=== PATIENT | female | born 1980 | race Hispanic/Latino ===

== ENCOUNTER 2018-09-17 08:03 | Emergency (ER) | payer BC, SELFPAY ==
--- OUTSIDE RECORDS SUMMARY | 2018-09-17 08:05 | XMS REPORT | Clinical Summary ---
:1980 Author Organization [facility] Address [address] [place] [id number] Care Team Providers Name Role Phone Eliza Domingo MD Primary Care Provider Allergies Not on File Current Medications Not on file Active Problems Not on file Social History Tobacco Use Types Packs/Day Years Used Date Never Assessed Sex Assigned at Date Recorded Not on file Last Filed Vital Signs Not on file Plan of Treatment Health Maintenance Due Date Last Done Comments CERVICAL CANCER SCREENING 2001 INFLUENZA VACCINE 06/25/2018 Results Not on fileafter 09/16/2017 Insurance Payer Benefit Plan / Group Subscriber ID Type Phone Address BCBS BCBS CHOICE PPO/FEDERAL EMPL PPO xxxxxxxxxxxx PPO Home: [id number] [phone] [place], [place] [phone]
[2018-09-17 08:38] LABS: Urine Blood 3+ (NEG); Urine Glucose NEGATIVE (NEG); Urine Protein 1+ (NEG); Urine Specific Gravity 1.015 (1.005-1.030); Urine pH 6.5 (5.0-7.0)
[2018-09-17 08:52] LABS: Absolute Monocytes 0.7 K/uL (0.1-1.3); Absolute Neutrophil 5.2 K/uL (1.8-8.0); Basophils % 0.3 % (0-1.3); Eosinophils % 3.1 % (0-4.4); Hematocrit 33.2 % (36.0-45.0); Lymphocytes % 24.3 % (15.3-44.8); MCH 30.2 pg (27.0-35.0); MCV 89.3 fL (80-100); Monocytes % 8.4 % (3.3-12.3); RBC Red Blood Cell Count 3.72 M/uL (3.86-4.86)
[2018-09-17 08:54] LABS: Urine RBC LOADED /HPF (NONE SEEN)
[2018-09-17 08:55] LABS: Urine Bacteria <20 /HPF (<20)
[2018-09-17 08:57] LABS: Urine Culture Reflex Order REFLEXED
--- NOTE | 2018-09-17 09:34 | RAD REPORT ---
EXAM DESCRIPTION: US - Transvaginal Study Probe - 09/17/2018 9:08 am CLINICAL HISTORY: Excessive vaginal bleeding COMPARISON: none FINDINGS: The uterus measures 12 x 7 x 6cm. A fibroid is not seen. Endometrial stripe measures 22 mi llimeters. Nabothian cysts are present within the cervix or A 4 centimeter right ovarian cyst is present. Blood flow within the right ovary is seen. Left ovary i s not well visualized but appears grossly normal. No significant free fluid is seen. IMPRESSION: Thickened endometrial stripe. Follow-up ultrasound in 6 weeks would be helpful to assess stability/resolution 4 centimeter right ovarian cyst. This also can be evaluated on subsequent ultrasound
[2018-09-17] MEDS ORDERED: NA CHLORIDE 0.9% 1,000 ML ONE (09:40)
--- NOTE | 2018-09-17 10:21 | ER ---
Nurse's Notes [facility] Name: Morales Marie Age: 38 yrs Sex: Female : 1980 Arrival Date: 09/17/2018 Time: 08:06 Bed 14 Private MD: Diagnosis: Abnormal uterine and vaginal bleeding, unspecified Presentation: 09/17 08:13 Presenting complaint: Patient states: I have been having vaginal bleeding for the last la1 3 weeks, on Saturday i started taking medroxyprogesterone for the bleeding but its not helping and now I am having pain as well. Pt reports she has OB appointment tomorrow. Transition of care: patient was not received from another setting of care. Onset of symptoms was September 17, 2018. Risk Assessment: Do you want to hurt yourself or someone else? Patient reports no desire to harm self or others. Initial Sepsis Screen: Does the patient meet any 2 criteria? No. Patient's initial sepsis screen is negative. Does the patient have a suspected source of infection? No. Patient's initial sepsis screen is negative. Care prior to arrival: None. 08:13 Acuity: MIGUEL ÁNGEL 3 la1 08:13 Method Of Arrival: Ambulatory la1 Historical: - Allergies: 08:13 No Known Allergies; la1 - Home Meds: 08:13 medroxyprogesterone 10 mg Oral tab 1 tab once daily [Active]; la1 - PMHx: 08:13 reflux; la1 - PSHx: 08:13 ; Cholecystectomy; la1 - Immunization history:: Adult Immunizations up to date. - Social history:: Smoking status: Patient/guardian denies using tobacco. - Ebola Screening: : No symptoms or risks identified at this time. Screenin:21 Abuse screen: Denies threats or abuse. Nutritional screening: On. Tuberculosis la1 screening: No symptoms or risk factors identified. Fall Risk None identified. Assessment: 08:20 General: Appears in no apparent distress. Behavior is calm, cooperative. Pain: la1 Complains of pain in pelvis. Neuro: Level of Consciousness is awake, alert, obeys commands, Oriented to person, place, time, situation, Gait is unsteady, Speech is normal. Cardiovascular: Patient's skin is warm and dry. Respiratory: Airway is patent Respiratory effort is even, unlabored, Respiratory pattern is regular, symmetrical. GI: Abdomen is non-distended, obese. : Reports vaginal bleeding that is with clots, moderate flow, since 3 weeks ago. Vital Signs: 08:15 Pulse 96; Resp 16; Temp 99.3(O); Pulse Ox 99% on R/A; Weight 135.17 kg; Height 5 ft. 1 la1 in. (154.94 cm); Pain 3/10; 08:16 BP 154 / 80; la1 09:31 BP 114 / 68 Supine; Pulse 81; la1 09:31 BP 128 / 85 Sitting; Pulse 87; la1 09:31 BP 119 / 84 Standing; Pulse 103; la1 10:39 BP 130 / 84; Pulse 80; Resp 16; Temp 97.5; Pulse Ox 98% on R/A; la1 08:15 Body Mass Index 56.31 (135.17 kg, 154.94 cm) la1 ED Course: 08:06 Patient arrived in ED. as 08:09 [facility] kb 08:09 North Fitzgerald MD is Attending Physician. kb 08:13 Arm band placed on right wrist. la1 08:15 Triage completed. la1 08:18 Aaron Ames RN is Primary Nurse. la1 08:21 Bed in low position. Call light in reach. la1 08:37 Inserted saline lock: 22 gauge in right forearm, using aseptic technique. la1 08:53 US Transvaginal Study (Probe) In Process Unspecified. EDMS 10:39 No provider procedures requiring assistance completed. IV discontinued, intact, la1 bleeding controlled, No redness/swelling at site. Pressure dressing applied. Administered Medications: 09:38 Drug: NS 0.9% 1000 ml Route: IV; Rate: 1 bolus; Site: right wrist; la1 10:25 Follow up: IV Status: Completed infusion la1 Outcome: 10:19 Discharge ordered by . kb 10:40 Discharged to home ambulatory. la1 10:40 Condition: stable 10:40 Discharge instructions given to patient, Instructed on discharge instructions, follow up and referral plans. Demonstrated understanding of instructions, follow-up care. 10:40 Patient left the ED. la1 Signatures: Dispatcher [employer] EDMS Nedra Wilson FNP-C FNP-Clair Martinez as Aaron Ames, RN RN la1
--- NOTE | 2018-09-17 10:21 | EDPHYS ---
Physician Documentation [facility] Name: Morales Marie Age: 38 yrs Sex: Female : 1980 Arrival Date: 09/17/2018 Time: 08:06 Bed 14 Private MD: ED Physician North Fitzgerald HPI: 09/17 08:29 This 38 yrs old Female presents to ER via Ambulatory with complaints of kb Vaginal Bleeding, Pelvic Pain. 08:29 The patient presents with vaginal bleeding that is moderate, reports using 4 pads or kb tampons per day. Onset: The symptoms/episode began/occurred 24 day(s) ago. Modifying factors: The symptoms are alleviated by nothing, the symptoms are aggravated by nothing. Associated signs and symptoms: Pertinent positives: urinary frequency, vaginal bleeding. Severity of symptoms: At their worst the symptoms were moderate, in the emergency department the symptoms are unchanged. The patient has not experienced similar symptoms in the past. The patient has not recently seen a physician. Pt reports vaginal bleeding since 08/25/18. Has appt with [facility] tomorrow and US scheduled for Saturday, but "cannot wait any longer." Reports urinary frequency and lower abd pain/cramping since yesterday. Historical: - Allergies: 08:13 No Known Allergies; la1 - Home Meds: 08:13 medroxyprogesterone 10 mg Oral tab 1 tab once daily [Active]; la1 - PMHx: 08:13 reflux; la1 - PSHx: 08:13 ; Cholecystectomy; la1 - Immunization history:: Adult Immunizations up to date. - Social history:: Smoking status: Patient/guardian denies using tobacco. - Ebola Screening: : No symptoms or risks identified at this time. ROS: 08:29 Constitutional: Negative for fever, chills, and weight loss, Cardiovascular: Negative kb for chest pain, palpitations, and edema, Respiratory: Negative for shortness of breath, cough, wheezing, and pleuritic chest pain, MS/Extremity: Negative for injury and deformity, Skin: Negative for injury, rash, and discoloration, Neuro: Negative for headache, weakness, numbness, tingling, and seizure. 08:29 Abdomen/GI: Positive for abdominal cramps. 08:29 : Positive for urinary frequency, vaginal bleeding. Exam: 08:29 Constitutional: This is a well developed, well nourished patient who is awake, alert, kb and in no acute distress. Head/Face: Normocephalic, atraumatic. Chest/axilla: Normal chest wall appearance and motion. Nontender with no deformity. No lesions are appreciated. Cardiovascular: Regular rate and rhythm with a normal S1 and S2. No gallops, murmurs, or rubs. Normal PMI, no JVD. No pulse deficits. Respiratory: Lungs have equal breath sounds bilaterally, clear to auscultation and percussion. No rales, rhonchi or wheezes noted. No increased work of breathing, no retractions or nasal flaring. Skin: Warm, dry with normal turgor. Normal color with no rashes, no lesions, and no evidence of cellulitis. MS/ Extremity: Pulses equal, no cyanosis. Neurovascular intact. Full, normal range of motion. Neuro: Awake and alert, GCS 15, oriented to person, place, time, and situation. Cranial nerves II-XII grossly intact. Motor strength 5/5 in all extremities. Sensory grossly intact. Cerebellar exam normal. Normal gait. 08:29 Abdomen/GI: Inspection: obese Bowel sounds: normal, in all quadrants, Palpation: abdomen is soft and non-tender, in all quadrants. Vital Signs: 08:15 Pulse 96; Resp 16; Temp 99.3(O); Pulse Ox 99% on R/A; Weight 135.17 kg; Height 5 ft. 1 la1 in. (154.94 cm); Pain 3/10; 08:16 BP 154 / 80; la1 09:31 BP 114 / 68 Supine; Pulse 81; la1 09:31 BP 128 / 85 Sitting; Pulse 87; la1 09:31 BP 119 / 84 Standing; Pulse 103; la1 10:39 BP 130 / 84; Pulse 80; Resp 16; Temp 97.5; Pulse Ox 98% on R/A; la1 08:15 Body Mass Index 56.31 (135.17 kg, 154.94 cm) la1 MDM: 08:19 Patient medically screened. kb 08:31 Data reviewed: vital signs, nurses notes. Data interpreted: Pulse oximetry: on room air kb is 99 %. Interpretation: normal. 09:42 Counseling: I had a detailed discussion with the patient and/or guardian regarding: the kb historical points, exam findings, and any diagnostic results supporting the discharge/admit diagnosis, lab results, radiology results, the need for outpatient follow up, an OB/Gyne specialist, to return to the emergency department if symptoms worsen or persist or if there are any questions or concerns that arise at home. ED course: Pt will keep appt with [facility] in [place] tomorrow. 09/17 08:29 Order name: CBC with Diff; Complete Time: 08:53 kb 09/17 08:29 Order name: Urine Microscopic Only; Complete Time: 08:59 kb 09/17 08:29 Order name: US Transvaginal Study (Probe); Complete Time: 09:38 kb 09/17 08:34 Order name: Urine Dipstick--Ancillary (enter results); Complete Time: 08:42 bd 09/17 08:34 Order name: Urine --Ancillary (enter results); Complete Time: 08:42 bd 09/17 08:59 Order name: Urine Culture EDID 09/17 08:29 Order name: Urine Test (obtain specimen); Complete Time: 08:29 kb 09/17 08:29 Order name: Urine Dipstick-Ancillary (obtain specimen); Complete Time: 08:29 kb 09/17 08:32 Order name: Orthostatics; Complete Time: 09:31 kb Administered Medications: 09:38 Drug: NS 0.9% 1000 ml Route: IV; Rate: 1 bolus; Site: right wrist; la1 10:25 Follow up: IV Status: Completed infusion la1 Disposition: 09/17/18 10:19 Discharged to Home. Impression: Abnormal uterine and vaginal bleeding, unspecified. - Condition is Stable. - Discharge Instructions: Abnormal Uterine Bleeding, [id number]. - Medication Reconciliation Form, Thank You Letter, Antibiotic Education, Prescription Opioid Use form. - Follow up: Emergency Department; When: As needed; Reason: Worsening of condition. Follow up: Private Physician; When: 2 - 3 days; Reason: Recheck today's complaints, Continuance of care, Re-evaluation by your physician. Addendum: 09/27/2018 08:00 Co-signature as Attending Physician, North Fitzgerald MD I agree with the assessment and k dr plan of care. Signatures: Dispatcher [employer] EDNedra Hernandez, ORTIZ CASONP-Ckb North Fitzgerald MD MD kdr Aaron Ames RN RN la1 Corrections: (The following items were deleted from the chart) 09/17 10:40 10:19 09/17/2018 10:19 Discharged to Home. Impression: Abnormal uterine and vaginal la1 bleeding, unspecified. Condition is Stable. Forms are Medication Reconciliation Form, Thank You Letter, Antibiotic Education, Prescription Opioid Use. Follow up: Emergency Department; When: As needed; Reason: Worsening of condition. Follow up: Private Physician; When: 2 - 3 days; Reason: Recheck today's complaints, Continuance of care, Re-evaluation by your physician. kb
== END 2018-09-17 10:40 | disposition home or self-care (01) ==
LOC: ER 08:03
DX: N93.9 Abnormal uterine and vaginal bleeding, unspecified (principal)
CPT/HCPCS: 36415; 76830; 81003; 81015; 81025; 85025; 87086; 87088; 96360; 99284; J7030

== ENCOUNTER 2021-09-26 04:01 | Emergency (ER) | payer OTHER, SELFPAY ==
[2021-09-26 04:47] LABS: Urine Blood Negative (Negative); Urine Glucose Negative (Negative); Urine Protein Negative (Negative); Urine Specific Gravity 1.015 (1.005-1.030)
[2021-09-26 05:10] LABS: Absolute Lymphocytes (CBC) 2.1 K/uL (0.7-4.9); Basophils % 0.6 % (0-1.3); Hematocrit 38.2 % (36.0-45.0); Lymphocytes % 21.1 % (15.3-44.8); MPV 9.8 fL (7.6-11.3); RBC Red Blood Cell Count 4.25 M/uL (3.86-4.86)
[2021-09-26 05:21] LABS: ALT/SGPT 23 U/L (12-78); AST/SGOT 21 U/L (15-37); Albumin 3.6 g/dL (3.4-5.0); Alkaline Phosphatase 53 U/L (45-117); BUN Blood Urea Nitrogen 13 mg/dL (7-18); Bicarbonate 28 mmol/L (21-32); Bilirubin Direct 0.1 mg/dL (0-0.2); Bilirubin Total 0.4 mg/dL (0.2-1.0); Glucose Level 94 mg/dL (74-106); Lipase 90 U/L (73-393); Protein, Total 7.8 g/dL (6.4-8.2); Sodium Level 138 mmol/L (136-145)
[2021-09-26 05:38] LABS: Urine Specific Gravity/Preg 1.015 (1.005-1.030)
[2021-09-26 05:38] LABS: Urine Specific Gravity/Preg 1.015 (1.005-1.030)
[2021-09-26] MEDS ORDERED: ONDANSETRON 4 MG/2 ML VIAL ONE (05:51)
[2021-09-26] MEDS ORDERED: NA CHLORIDE 0.9% 1,000 ML ONE (05:51)
--- NOTE | 2021-09-26 06:39 | ER ---
Nurse's Notes [facility] Name: Morales Marie Age: 41 yrs Sex: Female : 1980 Arrival Date: 09/26/2021 Time: 04:07 Bed 5 Private MD: Diagnosis: Vomiting, unspecified Presentation: 09/26 04:18 Chief complaint: Patient states: N/V since 8 pm last night, denies abdominal pain, em diarrhea or fever. Coronavirus screen: Vaccine status: Patient reports being unvaccinated. Ebola Screen: Patient negative for fever greater than or equal to 101.5 degrees Fahrenheit, and additional compatible Ebola Virus Disease symptoms Patient denies exposure to infectious person. Patient denies travel to an Ebola-affected area in the 21 days before illness onset. No symptoms or risks identified at this time. Initial Sepsis Screen: Does the patient meet any 2 criteria? No. Patient's initial sepsis screen is negative. Does the patient have a suspected source of infection? No. Patient's initial sepsis screen is negative. Risk Assessment: Do you want to hurt yourself or someone else? Patient reports no desire to harm self or others. Onset of symptoms was September 26, 2021. 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 - Social history:: Smoking status: Patient denies any tobacco usage or history of. Patient/guardian denies using alcohol, street drugs, The patient lives with family, with spouse. - Family history:: not pertinent. Screenin:55 Abuse screen: Denies threats or abuse. Denies injuries from another. Nutritional bs2 screening: No deficits noted. Tuberculosis screening: No symptoms or risk factors identified. Fall Risk None identified. Assessment: 04:55 General: Appears in no apparent distress. uncomfortable, obese, well groomed, well bs2 developed, well nourished, Behavior is calm, cooperative, appropriate for age. Pain: Denies pain. Neuro: No deficits noted. Cardiovascular: No deficits noted. Respiratory: No deficits noted. GI: Abdomen is round non-distended, obese, Bowel sounds present X 4 quads. Abd is soft and non tender X 4 quads. Reports nausea, since 8pm last night Patient currently denies abdominal pain. : No signs and/or symptoms were reported regarding the genitourinary system. EENT: No signs and/or symptoms were reported regarding the EENT system. Derm: No signs and/or symptoms reported regarding the dermatologic system. Vital Signs: 04:18 BP 134 / 89; Pulse 78; Resp 18; Temp 97.6; Pulse Ox 99% on R/A; Weight 114.31 kg; em Height 5 ft. 1 in. (154.94 cm); 06:06 BP 156 / 89; Pulse 64; Resp 18; Pulse Ox 100% on R/A; df1 04:18 Body Mass Index 47.61 (114.31 kg, 154.94 cm) em ED Course: 04:07 Patient arrived in ED. ja2 04:20 Triage completed. em 04:20 Arm band placed on. em 04:22 Kevin Wilkinson MD is Attending Physician. ma2 04:28 Adry Henley, RN is Primary Nurse. bs2 04:55 Patient has correct armband on for positive identification. Pulse ox on. NIBP on. Door bs2 closed. Noise minimized. Lights dimmed. Warm blanket given. 04:55 Basic Metabolic Panel Sent. bs2 04:55 CBC with Diff Sent. bs2 04:55 Hepatic Function Sent. bs2 04:55 Lipase Sent. bs2 04:55 Initial lab(s) drawn, by al, sent to lab. Inserted saline lock: 20 gauge in right bs2 forearm, using aseptic technique. Blood collected. 07:09 No provider procedures requiring assistance completed. IV discontinued, intact, bs2 bleeding controlled, No redness/swelling at site. Administered Medications: 04:54 Drug: NS 0.9% 1000 ml Route: IV; Rate: 1 bolus; Site: right forearm; bs2 07:10 Follow up: IV Status: Completed infusion; IV Intake: 1000ml bs2 04:54 Drug: Zofran (Ondansetron) 4 mg Route: IVP; Site: right forearm; bs2 07:09 Follow up: Response: No adverse reaction bs2 Intake: 07:10 IV: 1000ml; Total: 1000ml. bs2 Outcome: 06:39 Discharge ordered by . haley 07:09 Discharged to home ambulatory. bs2 07:09 Condition: improved 07:09 Discharge instructions given to patient, Instructed on discharge instructions, follow up and referral plans. medication usage, Demonstrated understanding of instructions, follow-up care, medications, Prescriptions given X 1. 07:10 Patient left the ED. bs2 Signatures: Phillip Lua RN Kevin Johnston MD MD ma2 Adry Henley RN RN bs2 Gia Gambino Dawn df1
--- NOTE | 2021-09-26 06:40 | EDPHYS ---
Physician Documentation [facility] Name: Morales Marie Age: 41 yrs Sex: Female : 1980 Arrival Date: 09/26/2021 Time: 04:07 Bed 5 Private MD: ED Physician Kevin Wilkinson HPI: 09/26 05:06 This 41 yrs old Female presents to ER via Ambulatory with complaints of ma2 Vomiting, Weakness. 05:06 The patient presents to the emergency department with nausea, vomiting. Onset: The ma2 symptoms/episode began/occurred gradually, 2 day(s) ago. Associated signs and symptoms: Pertinent negatives: constipation, dysuria, fever, GI bleeding, hematuria, nausea. Severity of symptoms: At their worst the symptoms were mild in the emergency department the symptoms have resolved. The patient has experienced similar episodes in the past. 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 - Social history:: Smoking status: Patient denies any tobacco usage or history of. Patient/guardian denies using alcohol, street drugs, The patient lives with family, with spouse. - Family history:: not pertinent. ROS: 05:06 Constitutional: Negative for fever, chills, and weight loss. ma2 05:06 All other systems are negative. Exam: 05:06 Constitutional: This is a well developed, well nourished patient who is awake, alert, ma2 and in no acute distress. Head/Face: Normocephalic, atraumatic. Eyes: Pupils equal round and reactive to light, extra-ocular motions intact. Lids and lashes normal. Conjunctiva and sclera are non-icteric and not injected. Cornea within normal limits. Periorbital areas with no swelling, redness, or edema. ENT: Nares patent. No nasal discharge, no septal abnormalities noted. Tympanic membranes are normal and external auditory canals are clear. Oropharynx with no redness, swelling, or masses, exudates, or evidence of obstruction, uvula midline. Mucous membranes moist. Neck: Trachea midline, no thyromegaly or masses palpated, and no cervical lymphadenopathy. Supple, full range of motion without nuchal rigidity, or vertebral point tenderness. No Meningismus. Chest/axilla: Normal chest wall appearance and motion. Nontender with no deformity. No lesions are appreciated. Cardiovascular: Regular rate and rhythm with a normal S1 and S2. No gallops, murmurs, or rubs. Normal PMI, no JVD. No pulse deficits. Respiratory: Lungs have equal breath sounds bilaterally, clear to auscultation and percussion. No rales, rhonchi or wheezes noted. No increased work of breathing, no retractions or nasal flaring. Abdomen/GI: Soft, non-tender, with normal bowel sounds. No distension or tympany. No guarding or rebound. No evidence of tenderness throughout. Skin: Warm, dry with normal turgor. Normal color with no rashes, no lesions, and no evidence of cellulitis. MS/ Extremity: Pulses equal, no cyanosis. Neurovascular intact. Full, normal range of motion. Neuro: Awake and alert, GCS 15, oriented to person, place, time, and situation. Cranial nerves II-XII grossly intact. Motor strength 5/5 in all extremities. Sensory grossly intact. Cerebellar exam normal. Normal gait. Vital Signs: 04:18 BP 134 / 89; Pulse 78; Resp 18; Temp 97.6; Pulse Ox 99% on R/A; Weight 114.31 kg; em Height 5 ft. 1 in. (154.94 cm); 06:06 BP 156 / 89; Pulse 64; Resp 18; Pulse Ox 100% on R/A; df1 04:18 Body Mass Index 47.61 (114.31 kg, 154.94 cm) em MDM: 04:22 Patient medically screened. ma2 05:06 Differential diagnosis: Nonspecific abd pain, gastritis, pancreatitis, viral ma2 gastroenteritis, gastroenteritis. 06:38 Data reviewed: vital signs, nurses notes, EMS record. Counseling: I had a detailed ma2 discussion with the patient and/or guardian regarding: the historical points, exam findings, and any diagnostic results supporting the discharge/admit diagnosis, the presence of at least one elevated blood pressure reading (>120/80) during this emergency department visit, lab results, radiology results. Response to treatment: the patient's symptoms have markedly improved after treatment. 09/26 04:09 Order name: Basic Metabolic Panel; Complete Time: 05:46 ma2 09/26 04:09 Order name: CBC with Diff; Complete Time: 05:18 ma2 09/26 04:09 Order name: Hepatic Function; Complete Time: 05:46 ma2 09/26 04:09 Order name: Lipase; Complete Time: 05:46 ma2 09/26 04:46 Order name: Urine Dipstick-Ancillary; Complete Time: 04:47 EDMS 09/26 04:50 Order name: Urine --Ancillary (enter results); Complete Time: 05:46 oe 09/26 04:09 Order name: IV Saline Lock; Complete Time: 04:55 ma2 09/26 04:09 Order name: Labs collected and sent; Complete Time: 04:55 ma2 09/26 04:09 Order name: Urine Dipstick-Ancillary (obtain specimen); Complete Time: 04:55 ma2 09/26 04:09 Order name: Urine Test (obtain specimen); Complete Time: 04:46 ma2 09/26 04:56 Order name: Urine --Ancillary (enter results); Complete Time: 05:46 mw2 Administered Medications: 04:54 Drug: NS 0.9% 1000 ml Route: IV; Rate: 1 bolus; Site: right forearm; bs2 07:10 Follow up: IV Status: Completed infusion; IV Intake: 1000ml bs2 04:54 Drug: Zofran (Ondansetron) 4 mg Route: IVP; Site: right forearm; bs2 07:09 Follow up: Response: No adverse reaction bs2 Disposition Summary: 09/26/21 06:39 Discharge Ordered Location: Home ma2 Condition: Stable ma2 Diagnosis - Vomiting, unspecified ma2 Followup: ma2 - With: Private Physician - When: Tomorrow - Reason: If symptoms return, Continuance of care Discharge Instructions: - Discharge Summary Sheet ma2 - Nausea and Vomiting, Adult, [id number] ma2 Forms: - Medication Reconciliation Form ma2 - Thank You Letter ma2 - Antibiotic Education ma2 - Prescription Opioid Use ma2 - Work release form mw2 Prescriptions: - Zofran 4 mg Oral Tablet - take 1 tablet by ORAL route every 12 hours As needed; 20 tablet; Refills: 0, ma2 Product Selection Permitted Signatures: Dispatcher [employer] Phillip Dudley, RN RN em Kevin Wilkinson MD MD ma2 Adry Henley RN RN bs2
[2021-09-26 07:15] VITALS: TEMP 97.6
[2021-09-26 07:16] VITALS: BP 156/89; O2SAT 100
--- OUTSIDE RECORDS SUMMARY | 2021-10-07 07:36 | XMS REPORT | Continuity of Care Document ---
:1980 Author Organization [facility] t Address [address] [place] [address] Care Team Providers Name Role Phone Unavailable Unavailable Unavailable Payers Payer Name Policy Type Policy Number Effective Date Expiration Date S ource Problems This patient has no known problems. Allergies, Adverse Reactions, Alerts This patient has no known allergies or adverse reactions. Medications This patient has no known medications. Procedures This patient has no known procedures. Results Test Description Test Time Test Comments Results Result [facility] e Comments - MRI L-SPINE W/O 2018-12-17 Patient Name: CONT 11:19:00 VIGNESH PADILLA Unit No: [id number] EXAMS: CPT CODE: [id number] MRI L-SPINE W/O CONT 85443 MRI OF THE LUMBAR SPINE: DIAGNOSIS: 1. At L1-2, mild to moderate disc degeneration. 4 mm right posterior lateral subligamentous disc herniation indents the adjacent thecal sac. Mild to moderate central canal stenosis. Mild to moderate foraminal stenosis. 2. At L2-3, mild to moderate disc degeneration. 3 mm broad-based disc protrusion flattens the ventral thecal sac. Moderate central canal stenosis. Mild to moderate foraminal stenosis. 3. At L3-4, mild disc degeneration. No central canal stenosis. Mild facet arthropathy. No foraminal stenosis. 4. At L4-5, moderate disc degeneration. There is a approximately 1 cm posterior central and left posterior lateral disc extrusion which severely impinges the left L5 nerve root in the lateral gutter and flattens the thecal sac and contained nerve roots. Marked left lateral gutter stenosis. No foraminal stenosis. 5. At L5-S1, mild disc degeneration. Mild central canal stenosis. Mild facet arthropathy. No foraminal stenosis. COMMENT: COMPARISON: No prior exams available. Sagittal T1, T2 and STIR and axial T1 and T2-weighted sequences are obtained of the lumbar spine. The lumbar vertebrae are within normal limits in signal. The findings are as above. The conus is in the expected location. at 1119 Reported and signed by: Evan Contreras MD CC: Azeem Perkins MD Technologist: Jenny Banegas, RT(R) Transcribed D/ ([id number]) [email or web address] [facility] NAME: VIGNESH PADILLA [address] [facility] PHYS: Azeem Noel : 1980 AGE: 38 SEX: F [place] [phone] LOC: Y.MRI PHONE #: [phone] EXAM DATE: 12/17/2018 STATUS: REG CLI FAX #: [phone] RAD #: D/C DT PAGE 1 Signed Report Patient Name: VIGNESH PADILLA Unit No: [id number] EXAMS: CPT CODE: [id number] MRI L-SPINE W/O CONT 30359 <Continued> Orig Print D/T: S: 12/17/2018 (1121) [facility] NAME: VIGNESH PADILLA [address] [facility] PHYS: Azeem Noel : 1980 AGE: 38 SEX: F [place] [phone] LOC: Y.MRI PHONE #: [phone] EXAM DATE: 12/17/2018 STATUS: REG CLI FAX #: [phone] RAD #: D/C DT PAGE 2 Signed Report
== END 2021-09-26 07:10 | disposition home or self-care (01) ==
LOC: ER 04:01
DX: R11.10 Vomiting, unspecified (principal); Z91.048 Other nonmedicinal substance allergy status
CPT/HCPCS: 96361; 85025; 80048; 36415; 81025 ×2; 80076; 81003; 83690; 96374; 99284; J7030; J2405